=== PATIENT | female | born 1980 | race Two or more races ===

== ENCOUNTER 2018-09-05 08:53 | Outpatient (CLI) | payer OTHER | END 2018-09-05 10:09 | disposition home or self-care (01) | LOC: RAD 501 08:53 | DX: B20 Human immunodeficiency virus [HIV] disease (principal); Z11.4 Encounter for screening for human immunodeficiency virus [HIV]; F32.89 Other specified depressive episodes; G47.09 Other insomnia; F41.8 Other specified anxiety disorders; J98.8 Other specified respiratory disorders ==